=== PATIENT | male | born 1950 | race Caucasian/White ===

== ENCOUNTER 2019-02-14 00:58 | Emergency (ER) | payer MEDICARE, BC ==
--- NOTE | 2019-02-14 01:07 | EDM.PDOC ---
ED HPI GENERAL MEDICAL PROBLEM - General Chief Complaint: Cardiovascular Problem Stated Complaint: HIGH BP/PAIN IN HANDS Time Seen by Provider: 02/14/19 01:07 Source of Information: Reports: Patient History Limitations: Reports: No Limitations - History of Present Illness INITIAL COMMENTS - FREE TEXT/NARRATIVE: 9-year-old male presents the ED for evaluation of elevated blood pressure at home. He has no headache or vertigo symptoms. He feels numbness and tingling is worse in his hands in the distribution of the median nerve. By history has mild carpal tunnel syndrome but he states often gets worse for whatever reason when his blood pressure is elevated. Also reports some numbness and tingling in the dorsal aspect of his right foot and great toe. Some pain in his right upper back but it is mild. Eyes any chest pressure shortness of breath no nausea or vomiting. Is on 3 different blood pressure medications i.e. amlodipine 5 mg once daily. Metoprolol 50 mg twice a day. 2 weeks ago was also started on almost certain/hydrochlorothiazide 40/25 mg daily. Blood preasures checked at home were elevated before bed at 196/100. Dates it gradually seemed to go up every hour when he checked it and at 1:00 it was over 200 systolically and 106 diastolically. This made him come to the ED for fear of stroke. She'll blood pressure in the ED is 229/95. Second reading was improved at 205/113 however. Therefore for never reason he has a labile blood pressure and it's elevated tonight. Denies being under any extra stress at this time. Doesn't think his diet is changed and he watches his salt intake chronically. Patient states he did take an extra 5 mg dose of amlodipine about 11:30 last night but it didn't seem to improve his blood pressure. Onset: Gradual, Other (Patient has chronic hypertension for many years) Onset Date: 02/13/19 (Doppler pressure was noted to be elevated before going to bed last night.) Duration: Hour(s): Location: Reports: Other Quality: Reports: Other (Elevated blood pressure at home. Relatively asymptomatic. He has some median nerve symptoms bilaterally. Labs are worse tonight for whatever reason.) Severity: Moderate Improves with: Reports: None Worsens with: Reports: None Context: Reports: Other (Trying to get some sleep.). Denies: Activity, Exercise , Lifting, Sick Contact, Trauma Associated Symptoms: Reports: Malaise, Other (Reports numbness and tingling in his hands bilaterally in the distribution of the median nerve. Numbness in his right dorsal foot and some numbness tingling in his right upper mid back). Denies: Confusion, Chest Pain, Cough, cough w sputum, Diaphoresis, Fever/Chills , Headaches, Loss of Appetite, Nausea/Vomiting, Rash, Seizure, Shortness of Breath, Syncope Treatments ORDER PROCESSING SPECIALIST: Reports: Other (see below) (None.) - Related Data Allergies Allergy/AdvReac Type Severity Reaction Status Date / Time LILIYA Inhibitors Allergy Intermediate Cough Verified 02/14/19 01:13 morphine Allergy Pain Uncoded 02/14/19 01:13 Home Meds: Home Meds Aspirin [Halfprin] 81 mg PO DAILY 02/14/19 [History] Ferrous Sulfate [Iron] 325 mg PO BID 02/14/19 [History] Metoprolol Tartrate 50 mg PO BID 02/14/19 [History] Olmesartan/Hydrochlorothiazide [Olmesartan-Hctz 40-25 mg Tab] 1 tab PO DAILY [History] Pantoprazole Sodium [Protonix] 40 mg PO DAILY 02/14/19 [History] Potassium 99 mg PO DAILY 02/14/19 [History] Vit C/Ascorb Sod/Multivit-Min [Emergen-C 500 mg Chewable Tab] 500 mg PO DAILY [History] Vit D3/Folic Acid/B2/B6/B12 [Folgard Tablet] 2,000 units PO DAILY 02/14/19 [ History] amLODIPine [Norvasc] 5 mg PO DAILY 02/14/19 [History] amLODIPine [Norvasc] 10 mg PO DAILY #30 tablet 02/14/19 [Rx] Past Medical History HEENT History: Reports: Glaucoma (Right eye after retinal detachment. His and was restored surgically.), Retinal Detachment (Right eye) Cardiovascular History: Reports: Hypertension Gastrointestinal History: Reports: GERD (With reflux. Controlled with Prilosec daily) Musculoskeletal History: Reports: Osteoarthritis Neurological History: Reports: Other (See Below) (Carpal tunnel syndrome both hands.) Endocrine/Metabolic History: Reports: Other (See Below) (Chronic hypokalemia) Social & Family History - Living Situation & Occupation Living situation: Reports: Single Occupation: Employed (Self-employed) ED ROS GENERAL - Review of Systems Review Of Systems: See Below Constitutional: Reports: Fatigue. Denies: Fever, Chills, Decreased Appetite, Weight Loss HEENT: Reports: Glasses (Mostly for reading.), Other (Right eye remains chronically erythematous i.e. conjunctiva is injected likely is a side effect of medications for glaucoma) Respiratory: Reports: Shortness of Breath. Denies: Wheezing, Pleuritic Chest Pain (Occasionally on exertion), Cough, Sputum Cardiovascular: Reports: Blood Pressure Problem, Dyspnea on Exertion (Sometimes) . Denies: Chest Pain, Claudication, Edema, Lightheadedness, Orthopnea ( Chronically) Endocrine: Reports: Fatigue GI/Abdominal: Reports: No Symptoms : Reports: Frequency, Other (Nocturia usually 2) Musculoskeletal: Reports: Joint Pain (These hips and neck and back at times) Skin: Reports: No Symptoms Neurological: Reports: Other (Weekly has carpal tunnel syndrome bilaterally with peers seizes numbness and continuing in the distribution of the median nerve bilaterally) Psychiatric: Reports: No Symptoms Hematologic/Lymphatic: Reports: No Symptoms Immunologic: Reports: No Symptoms ED EXAM, GENERAL - Physical Exam Exam: See Below Exam Limited By: No Limitations General Appearance: Alert, WD/WN, No Apparent Distress Eye Exam: Right Eye: Conjunctival Injection (Moderate and this is chronic since surgical repair of retinal detachment and use of medication for glaucoma right eye), Bilateral Eye: PERRL Neck: Normal Inspection, Supple, Non-Tender, Full Range of Motion. No: Carotid Bruit, Lymphadenopathy (L), Lymphadenopathy (R) Respiratory/Chest: No Respiratory Distress, Lungs Clear, Normal Breath Sounds, Chest Non-Tender Cardiovascular: Normal Peripheral Pulses, Regular Rate, Rhythm, No Edema, No Gallop, No Murmur, No Rub Peripheral Pulses: 2+: Carotid (L), Carotid (R), Posterior Tibial (L), Posterior Tibial (R), Dorsalis Pedis (L), Dorsalis Pedis (R) GI/Abdominal: Normal Bowel Sounds, Soft, Non-Tender, No Organomegaly, No Mass, Pelvis Stable Back Exam: Normal Inspection, Full Range of Motion, Other (Mild tenderness over thoracic 7 rib head right upper back.). No: CVA Tenderness (L), CVA Tenderness (R) Extremities: Normal Inspection, Non-Tender, No Pedal Edema, Normal Capillary Refill, Other (Evidence of ulcers Norman changes in his knees and hips.) Neurological: Alert, Oriented, CN II-XII Intact, Normal Cognition, Other ( Positive Horacio's and Phalen's test on assessment of median nerves bilaterally comparable carpal tunnel syndrome) Skin Exam: Warm, Dry, Intact, Normal Color, No Rash EKG INTERPRETATION EKG Date: 02/14/19 Time: 13:02 Rhythm: NSR Rate (Beats/Min): 70 (Borderline first-degree AV block) Gwinner: LAD-Left Gwinner Deviation (Left axis deviation of -62 2. Left anterior fascicular block pattern) P-Wave: Enlarged (Left atrial hypertrophy pattern. P waves are inverted in leads V1 and V2.) QRS: Other (There is left ventricular hypertrophy pattern. There are near Q waves II, III, and F aVF suggestive of possible old inferior wall myocardial infarction.) ST-T: Other (Diffuse early repolarization pattern) QT: Prolonged (Minimally prolonged) EKG Interpretation Comments: Abnormal ECG Course - Vital Signs Last Recorded V/S: Last Vital Signs Temp 36.7 C 02/14/19 01:03 Pulse 73 02/14/19 01:03 Resp 23 H 02/14/19 01:03 BP 175/88 H 02/14/19 01:33 Pulse Ox 98 02/14/19 01:03 - Orders/Labs/Meds Orders: Active Orders 24 hr Category Date Time Status EKG Documentation Completion [RC] STAT Care 02/14/19 01:21 Active Peripheral IV Care [RC] . DIRECTED Care 02/14/19 01:22 Active Sodium Chloride 0.9% [Saline Flush] Med 02/14/19 01:21 Active 10 ml FLUSH ASDIRECTED PRN Peripheral IV Insertion Adult [OM.PC] Stat Oth 02/14/19 01:22 Ordered Medication Orders Sodium Chloride (Saline Flush) 10 ml FLUSH ASDIRECTED PRN PRN Reason: Keep Vein Open Last Admin: 02/14/19 01:35 Dose: 10 ml Labs: Laboratory Tests 02/14/19 02/14/19 02/14/19 Range/Units 01:30 01:30 01:30 WBC 8.63 (4.23-9.07) K/mm3 RBC 5.94 (4.63-6.08) M/mm3 Hgb 15.7 (13.7-17.5) gm/L Hct 45.1 (40.1-51.0) % MCV 75.9 L (79.0-92.2) fl MCH 26.4 (25.7-32.2) pg MCHC 34.8 (32.2-35.5) g/dl RDW Std Deviation 37.8 (35.1-43.9) fL Plt Count 184 (163-337) K/mm3 MPV 12.2 (9.4-12.3) fl Neutrophils % (Manual) 58 (40-60) % Band Neutrophils % 0 (0-10) % Lymphocytes % (Manual) 36 (20-40) % Atypical Lymphs % 0 % Monocytes % (Manual) 2 (2-10) % Eosinophils % (Manual) 3 (0.8-7.0) % Basophils % (Manual) 1 (0.2-1.2) Platelet Estimate Adequate Plt Morphology Comment Normal RBC Morph Comment Normal Sodium 140 (136-145) mEq/L Potassium 2.9 L (3.5-5.1) mEq/L Chloride 103 (98-107) mEq/L Carbon Dioxide 27 (21-32) mEq/L Anion Gap 12.9 (5-15) BUN 13 (7-18) mg/dL Creatinine 1.0 (0.7-1.3) mg/dL Est Cr Clr Drug Dosing 68.74 mL/min Estimated GFR (MDRD) > 60 (>60) mL/min BUN/Creatinine Ratio 13.0 L (14-18) Glucose 143 H (80-115) mg/dL Calcium 10.0 (8.5-10.1) mg/dL Magnesium 1.8 (1.8-2.4) mg/dl Total Bilirubin 0.4 (0.2-1.0) mg/dL AST 18 (15-37) U/L ALT 30 (16-63) U/L Alkaline Phosphatase 95 (46-116) U/L NT-Pro-B Natriuret Pep 192 H (0-125) pg/mL Total Protein 7.6 (6.4-8.2) g/dl Albumin 3.6 (3.4-5.0) g/dl Globulin 4.0 gm/dL Albumin/Globulin Ratio 0.9 L (1-2) Meds: Medications Generic Name Dose Route Start Last Admin Trade Name Damaris PRN Reason Stop Dose Admin Sodium Chloride 10 ml 02/14/19 01:21 02/14/19 01:35 Saline Flush FLUSH 10 ml ASDIRECTED PRN Administration Keep Vein Open Discontinued Medications Generic Name Dose Route Start Last Admin Trade Name Damaris PRN Reason Stop Dose Admin Hydralazine HCl 10 mg 02/14/19 01:22 02/14/19 01:31 Apresoline IVPUSH 02/14/19 01:23 10 mg ONETIME ONE Administration Prazosin HCl 1 mg 02/14/19 01:24 02/14/19 01:33 Minpress PO 02/14/19 01:25 1 mg ONETIME ONE Administration - Radiology Interpretation Free Text/Narrative:: Patient presents the ED with elevated blood pressure. As chronic hypertension and was started on losartan/hydrochlorothiazide 40/25 mg 2 weeks ago. He has reported allergy to liliya inhibitors. He is also on a potassium supplement. He presents with elevated blood pressure since before going to bed last night. He states he senses when his blood pressure is elevated and therefore takes his blood pressure. He states was around 195 systolic before going to bed last night. Usually when he checks it sets in the 1:30 to 140 systolic range and usually below 90 diastolically. Initial blood pressure here in the ED was 229/ 95 and the second recording was 205/113. It appears that he is mildly apprehensive in this regard. He has bilateral carpal tunnel syndrome clinically which he states he often appreciates his weight made worse when his blood pressure is elevated. Plan saline lock. He will receive hydralazine 10 mg IV and I will give him a dose of prazosin 1 mg orally. Routine labs to be obtained. ECG does not show anything acute. - Re-Assessments/Exams Free Text/Narrative Re-Assessment/Exam: 02/14/19 01:48 Blood pressure is currently 163/81 with a heart rate of 68. Patient comments that there is less numbness and tingling in his hands and feet already. 02/14/19 02:18 Labs are for the most part back. White count is 8.63. Differential pending. Hemoglobin is 15.7 with hematocrit of 45.1. MCV remains mildly low at 75.9. Patient has a history of iron deficiency. Sodium is 140 with potassium is low at 2.9. Chloride is 103 with a bicarbonate 27. Anion gap is 12.9. BUN is 13. Creatinine is 1.0. eGFR is greater than 60. Glucose is 143. Calcium is 10.0. Magnesium 1.8. Liver function is normal. BNP is minimally elevated at 192. Total protein is 7.6 with a albumin fraction of 3.6. Blood pressure is improved to 152/69. I will therefore allow the patient to go home. Plan will be to increase his potassium supplement to twice a day dosing. Also his Norvasc will be increased to a full 10 mg once daily. He is to follow-up with his personal care physician within the next 10 days for blood pressure reevaluation. He actually apparently has an appointment time sometime within the next 2 weeks. He sees [facility] in [place]. The plan will be to increase his amlodipine to a full 10 mg in the morning. This is a better chance of providing 24-hour control blood pressure. He will double his potassium tablets for now daily to bring his potassium up. If he remains hypokalemic in 2 weeks' time then the hydrochlorothiazide may have to be withdrawn from his treatment plan. If his blood pressure continues to elevate he will require another antihypertensive medication such as prazosin or cozaar. Departure - Departure Time of Disposition: 02:27 Disposition: Home, Self-Care 01 Condition: Fair Clinical Impression: Hypokalemia due to loss of potassium, Labile essential hypertension Prescriptions: amLODIPine [Norvasc] 10 mg PO DAILY #30 tablet Instructions: Hypokalemia, Managing Your Hypertension Referrals: PCP,Not In Area [Primary Care Provider] - Forms: ED Department Discharge Additional Instructions: Evaluation the emergency room this morning in regards to identified elevated blood pressure at home with continuing elevation of the top number particularly. Upon arrival in the ED blood pressure was found to be significantly elevated at 229/105 and then came down to 205/113. We call this labile hypertension which means her blood pressure goes up and down like rolling [place] for no apparent reason. Appreciated a worsening of carpal tunnel syndrome in both of your hands with increased numbness and tingling and similarly in your right foot. Blood pressure was treated with intravenous hydralazine 10 mg dose and oral prazosin 1 mg dose. Lab tests revealed that your potassium was on the low side at 2.9 and it should be 3.5-4. Kidney function is still excellent. At this time I would suggest increasing your Norvasc to a full 10 mg tablet in the morning instead of 5 mg or take 25 mg tablets since you have quite a few left. Prescription was written for the 10 mg dosage that you may feel when you run out of the 5 mg dosage. Just increasing her potassium supplement twice daily to review with her personal care physician in [place] in a couple of weeks time. Of course return to the emergency department if blood pressure remains out of control at any time - My Orders Last 24 Hours: My Active Orders 02/14/19 01:21 EKG Documentation Completion [RC] STAT Sodium Chloride 0.9% [Saline Flush] 10 ml FLUSH ASDIRECTED PRN 02/14/19 01:22 Peripheral IV Care [RC] . DIRECTED Peripheral IV Insertion Adult [OM.PC] Stat - Assessment/Plan Last 24 Hours: My Active Orders 02/14/19 01:21 EKG Documentation Completion [RC] STAT Sodium Chloride 0.9% [Saline Flush] 10 ml FLUSH ASDIRECTED PRN 02/14/19 01:22 Peripheral IV Care [RC] . DIRECTED Peripheral IV Insertion Adult [OM.PC] Stat
[2019-02-14] MEDS ORDERED: Sodium Chloride 0.9% 10 ML Syringe FLUSH PRN (01:21)
[2019-02-14] MEDS ORDERED: hydrALAZINE 20 MG/ML SDV IVPUSH ONE (01:22)
[2019-02-14] MEDS ORDERED: Prazosin 1 MG Cap PO ONE (01:24)
== END 2019-02-14 02:37 | disposition home or self-care (01) ==
LOC: JD.ED 00:58
DX: I10 Essential (primary) hypertension (principal); E87.6 Hypokalemia; K21.9 Gastro-esophageal reflux disease without esophagitis; M19.90 Unspecified osteoarthritis, unspecified site; Z79.82 Long term (current) use of aspirin; Z79.899 Other long term (current) drug therapy
CPT/HCPCS: 36415; 80053; 83735; 83880; 85007; 85027; 93005; 96374; 99283; A9270; J0360; 93010; 99285

== ENCOUNTER 2021-01-12 16:27 | Emergency (ER) | payer MEDICARE, BC ==
[2021-01-12] MEDS ORDERED: Ondansetron 4 MG/2 ML SDV IVPUSH ONE (17:06)
[2021-01-12] MEDS ORDERED: Sodium Chloride 0.9% 10 ML Syringe FLUSH PRN (17:07)
[2021-01-12] MEDS ORDERED: Sodium Chloride 0.9% 1,000 ML IV SCH (17:15)
--- NOTE | 2021-01-12 17:15 | EDM.PDOC ---
ED HPI GENERAL MEDICAL PROBLEM - General Chief Complaint: Abdominal Pain Stated Complaint: LT SIDE ABD PAIN Time Seen by Provider: 01/12/21 16:45 Source of Information: Reports: Patient, RN Notes Reviewed History Limitations: Reports: No Limitations - History of Present Illness INITIAL COMMENTS - FREE TEXT/NARRATIVE: Patient is a 70-year-old male who presents to the ED for his left side abdomen pain. Patient notes that this started at around 8 AM this morning, when he rolled over in the bed, he felt a sharp sensation in his left lower quadrant, and this has been constant since then. He has a history of diverticulitis and has had multiple major surgeries done, has had a colostomy placed, taken down, notes that he has lots of adhesions in his abdomen. He felt maybe slightly nauseated but has not had any vomiting or diarrhea, his last bowel movement was this morning, this was normal for him. He did not note any blood within the stool. He is not had any fevers or chills, cough or shortness of breath. His primary care provider is in [place]. Patient did not take any sort of medications for the pain, he further denies any urinary issues like frequency/urgency or dysuria. Other Treatments SAFETY COMPANION: none Left Abdomen Pain Score (Numeric/FACES): 1 - Related Data Allergies Allergy/AdvReac Type Severity Reaction Status Date / Time LILIYA Inhibitors Allergy Severe Cough Verified 01/12/21 16:41 morphine Allergy Severe Pain Uncoded 01/12/21 16:41 Home Meds: Home Meds Aspirin [Halfprin] 81 mg PO DAILY 02/14/19 [History] Ferrous Sulfate [Iron] 325 mg PO BID 02/14/19 [History] Metoprolol Tartrate 50 mg PO BID 02/14/19 [History] Olmesartan/Hydrochlorothiazide [Olmesartan-Hctz 40-25 mg Tab] 1 tab PO DAILY 02/14/19 [History] Pantoprazole Sodium [Protonix] 40 mg PO DAILY 02/14/19 [History] Potassium 99 mg PO DAILY 02/14/19 [History] Vit C/Ascorb Sod/Multivit-Min [Emergen-C 500 mg Chewable Tab] 500 mg PO DAILY 02/14/19 [History] Vit D3/Folic Acid/B2/B6/B12 [Folgard Tablet] 2,000 units PO DAILY 02/14/19 [History] amLODIPine [Norvasc] 5 mg PO DAILY 02/14/19 [History] amLODIPine [Norvasc] 10 mg PO DAILY #30 tablet 02/14/19 [Rx] Past Medical History HEENT History: Reports: Glaucoma, Retinal Detachment Cardiovascular History: Reports: Hypertension Gastrointestinal History: Reports: GERD Musculoskeletal History: Reports: Osteoarthritis Other Musculoskeletal History: fx ankle Neurological History: Reports: Other (See Below) Endocrine/Metabolic History: Reports: Other (See Below) - Infectious Disease History Infectious Disease History: Reports: Chicken Pox, Measles, Mumps, Shingles - Past Surgical History HEENT Surgical History: Reports: Detached Retina GI Surgical History: Reports: Appendectomy, Cholecystectomy Social & Family History - Tobacco Use Tobacco Use Status *Q: Never Tobacco User - Caffeine Use Caffeine Use: Reports: Coffee, Soda - Recreational Drug Use Recreational Drug Use: No - Living Situation & Occupation Living situation: Reports: Single Occupation: Employed (Self-employed) ED ROS GENERAL - Review of Systems Review Of Systems: Comprehensive ROS is negative, except as noted in HPI. ED EXAM, GI/ABD - Physical Exam Exam: See Below Exam Limited By: No Limitations General Appearance: Alert, WD/WN, No Apparent Distress Respiratory/Chest: No Respiratory Distress, Lungs Clear, Normal Breath Sounds, No Accessory Muscle Use, Chest Non-Tender Cardiovascular: Normal Peripheral Pulses, Regular Rate, Rhythm, No Edema GI/Abdominal Exam: Normal Bowel Sounds, Soft, No Distention, No Mass, Tender (LLQ mainly and over the site of colostomy). No: Hernia (that was palpable) Extremities: Normal Inspection, Normal Capillary Refill Neurological: Alert, Oriented, Normal Cognition, No Motor/Sensory Deficits Psychiatric: Normal Affect, Normal Mood Skin Exam: Warm, Dry, Intact, Normal Color, No Rash Course - Vital Signs Last Recorded V/S: Last Vital Signs Temp 97.9 F 01/12/21 16:51 Pulse 75 01/12/21 16:51 Resp 20 01/12/21 16:51 BP 197/96 H 01/12/21 16:51 Pulse Ox 99 01/12/21 16:51 - Orders/Labs/Meds Orders: Active Orders 24 hr Category Date Time Status Peripheral IV Care [RC] . DIRECTED Care 01/12/21 17:07 Ordered Abdomen Pelvis w Cont [CT] Stat Exams 01/12/21 17:06 Ordered Sodium Chloride 0.9% [Normal Saline] 1,000 ml Med 01/12/21 17:15 Ordered IV ASDIRECTED Sodium Chloride 0.9% [Normal Saline] 100 ml Med 01/12/21 19:15 Active IV ASDIRECTED Sodium Chloride 0.9% [Saline Flush] Med 01/12/21 17:07 Ordered 10 ml FLUSH ASDIRECTED PRN Peripheral IV Insertion Adult [OM.PC] Routine Oth 01/12/21 17:07 Ordered Medication Orders Sodium Chloride (Normal Saline) 1,000 mls @ 999 mls/hr IV ASDIRECTED ZAK Last Admin: 01/12/21 17:15 Dose: 999 mls/hr Documented by: FRANK Sodium Chloride (Normal Saline) 100 mls @ 60 drops/min IV ASDIRECTED ZAK Last Admin: 01/12/21 19:43 Dose: 60 drops/min Documented by: [email or web address] Sodium Chloride (Saline Flush) 10 ml FLUSH ASDIRECTED PRN PRN Reason: Keep Vein Open Last Admin: 01/12/21 16:50 Dose: 10 ml Documented by: FRANK Labs: Laboratory Tests 01/12/21 01/12/21 01/12/21 Range/Units 16:50 16:50 17:10 WBC 7.70 (4.23-9.07) K/mm3 RBC 6.19 H (4.63-6.08) M/mm3 Hgb 16.0 (13.7-17.5) gm/dl Hct 47.5 (40.1-51.0) % MCV 76.7 L (79.0-92.2) fl MCH 25.8 (25.7-32.2) pg MCHC 33.7 (32.2-35.5) g/dl RDW Std Deviation 39.8 (35.1-43.9) fL Plt Count 194 (163-337) K/mm3 MPV 12.7 H (9.4-12.3) fl Neutrophils % (Manual) 64 H (40-60) % Band Neutrophils % 0 (0-10) % Lymphocytes % (Manual) 33 (20-40) % Atypical Lymphs % 0 % Monocytes % (Manual) 2 (2-10) % Eosinophils % (Manual) 1 (0.8-7.0) % Basophils % (Manual) 0 L (0.2-1.2) Platelet Estimate Adequate Plt Morphology Comment See note Microcytosis 1+ slight RBC Morph Comment Not Reportable Sodium 144 (136-145) mEq/L Potassium 3.5 (3.5-5.1) mEq/L Chloride 105 (98-107) mEq/L Carbon Dioxide 28 (21-32) mEq/L Anion Gap 14.5 (5-15) BUN 12 (7-18) mg/dL Creatinine 1.0 (0.7-1.3) mg/dL Est Cr Clr Drug Dosing 67.75 mL/min Estimated GFR (MDRD) > 60 (>60) mL/min BUN/Creatinine Ratio 12.0 L (14-18) Glucose 107 (83-115) mg/dL Calcium 9.9 (8.5-10.1) mg/dL Total Bilirubin 0.5 (0.2-1.0) mg/dL AST 22 (15-37) U/L ALT 30 (16-63) U/L Alkaline Phosphatase 106 (46-116) U/L C-Reactive Protein 1.0 (<1.0) mg/dL Total Protein 8.2 (6.4-8.2) g/dl Albumin 3.8 (3.4-5.0) g/dl Globulin 4.4 gm/dL Albumin/Globulin Ratio 0.9 L (1-2) Urine Color Yellow (Yellow) Urine Appearance Clear (Clear) Urine pH 7.5 (5.0-8.0) Ur Specific [place] 1.020 (1.005-1.030) Urine Protein Negative (Negative) Urine Glucose (UA) Negative (Negative) Urine Ketones Negative (Negative) Urine Occult Blood Negative (Negative) Urine Nitrite Negative (Negative) Urine Bilirubin Negative (Negative) Urine Urobilinogen 0.2 (0.2-1.0) Ur Leukocyte Esterase Negative (Negative) Urine RBC 0-5 (0-5) /hpf Urine WBC 0-5 (0-5) /hpf Ur Squamous Epith Cells Not seen (0-5) /hpf Urine Bacteria Occasional (FEW) /hpf Urine Mucus Not seen (FEW) /hpf Meds: Medications Generic Name Dose Route Start Last Admin Trade Name Freq PRN Reason Stop Dose Admin Sodium Chloride 1,000 mls @ 999 mls/hr 01/12/21 17:15 01/12/21 17:15 Normal Saline IV 999 mls/hr ASDIRECTED ZAK Administration Sodium Chloride 100 mls @ 60 drops/min 01/12/21 19:15 01/12/21 19:43 Normal Saline IV 60 drops/min ASDIRECTED ZAK Administration Sodium Chloride 10 ml 01/12/21 17:07 01/12/21 16:50 Saline Flush FLUSH 10 ml ASDIRECTED PRN Administration Keep Vein Open Discontinued Medications Generic Name Dose Route Start Last Admin Trade Name Damaris PRN Reason Stop Dose Admin Iopamidol 100 ml 01/12/21 19:14 01/12/21 19:43 Isovue-300 (61%) IVPUSH 01/12/21 19:15 100 ml ONETIME ONE Administration Ondansetron HCl 4 mg 01/12/21 17:06 01/12/21 17:14 Zofran IVPUSH 01/12/21 17:07 4 mg ONETIME ONE Administration - Re-Assessments/Exams Free Text/Narrative Re-Assessment/Exam: 01/12/21 17:13 Patient presents to the ED for evaluation of his left lower quadrant abdominal pain, IV was placed at time of triage required to do labs, urinalysis and abdom en pelvis CT with IV and oral contrast for further investigation. Patient does have history of diverticulitis, along with multiple abdomen surgeries. 01/12/21 20:21 The patient's labs did result, CBC, metabolic panel, CRP are all unremarkable, urinalysis also without infection. The CT did demonstrate a cyst on the left lower kidney, but no other acute findings. There was quite a bit of stool t hroughout his colon, with a large stool burden within the left colon, just about where he was pointing on his abdomen where it hurt. There is no free fluid, inflammatory change, or any other signs of possible diverticulitis at this time. I did go over the results with the patient, and he verbalized understanding. He should follow-up with his primary care provider, for a dedicated renal study due to the cyst. Patient did get oral contrast at this ER visit, which should provide somewhat of a laxative effect, will go ahead and give him some mag citrate as well for a full bowel cleanse. Departure - Departure Time of Disposition: 20:23 Disposition: Home, Self-Care 01 Condition: Good Clinical Impression: LLQ abdominal pain, Renal cyst Constipation Qualifiers: Constipation type: other constipation type Qualified Code(s): K59.09 - Other constipation - Discharge Information *PRESCRIPTION DRUG MONITORING PROGRAM REVIEWED*: No *COPY OF PRESCRIPTION DRUG MONITORING REPORT IN PATIENT OSMAN: No Instructions: Constipation, Adult, [id number] Referrals: PCP,Not In Area [Primary Care Provider] - Forms: ED Department Discharge Additional Instructions: You were evaluated in the ER today for your left lower quadrant abdomen pain. Labs and a CT were done at today's visit, and demonstrate no remarkable acute findings. You did have a cyst on your left kidney, that you were not aware of prior to this visit, recommend you follow-up with your primary care physician, for dedicated renal studies like ultrasound. You were given a copy of the CT report for your primary care provider's review. Your CT also demonstrated quite a bit of stool burden throughout your colon, which is consistent with slight constipation. The oral contrast received at today's visit, should provide a laxative effect however you were also given a bottle of magnesium citrate, please use this tomorrow morning, drink one half bottle if you do not have a rather large bowel movement within a few hours, repeat with the other half bottle. Please note you might have some abdomen cramping while using this medication, and you may end up with some looser stools towards the end of this medication. Please return to the ER at any time if symptoms change or worsen. Sepsis Event Note (ED) - Evaluation Sepsis Screening Result: No Definite Risk - Focused Exam Vital Signs: Vital Signs Temp Pulse Resp BP Pulse Ox 01/12/21 16:51 97.9 F 75 20 197/96 H 99 - My Orders Last 24 Hours: My Active Orders 01/12/21 17:06 Abdomen Pelvis w Cont [CT] Stat 01/12/21 17:07 Peripheral IV Care [RC] . DIRECTED Sodium Chloride 0.9% [Saline Flush] 10 ml FLUSH ASDIRECTED PRN Peripheral IV Insertion Adult [OM.PC] Routine 01/12/21 17:15 Sodium Chloride 0.9% [Normal Saline] 1,000 ml IV ASDIRECTED 01/12/21 19:15 Sodium Chloride 0.9% [Normal Saline] 100 ml IV ASDIRECTED - Assessment/Plan Last 24 Hours: My Active Orders 01/12/21 17:06 Abdomen Pelvis w Cont [CT] Stat 01/12/21 17:07 Peripheral IV Care [RC] . DIRECTED Sodium Chloride 0.9% [Saline Flush] 10 ml FLUSH ASDIRECTED PRN Peripheral IV Insertion Adult [OM.PC] Routine 01/12/21 17:15 Sodium Chloride 0.9% [Normal Saline] 1,000 ml IV ASDIRECTED 01/12/21 19:15 Sodium Chloride 0.9% [Normal Saline] 100 ml IV ASDIRECTED
[2021-01-12] MEDS ORDERED: Iopamidol 612 MG/ML 100 ML Bottle IVPUSH ONE (19:14)
[2021-01-12] MEDS ORDERED: Sodium Chloride 0.9% 100 ML IV SCH (19:15)
[2021-01-12] MEDS ORDERED: Magnesium Citrate Solution 296 ML Bottle PO ONE (20:24)
--- NOTE | 2021-01-13 08:04 | CT ---
CT abdomen and pelvis Technique: Multiple axial sections were obtained from above the dome of the diaphragm inferiorly through the pubic symphysis. Intravenous and oral contrast was utilized. Delayed images were also obtained through the abdomen and pelvis. Comparison: Previous CT abdomen and pelvis study of 04/29/11. Findings: Visualized lung bases show nothing acute. Liver shows no focal parenchymal abnormality. Spleen appears normal. Adrenal glands show no nodule. Pancreas is within normal limits. Surgical clips are noted from prior cholecystectomy. Right kidney appears within normal limits. Left kidney shows a multi-locular cystic area within the lower pole showing some wall calcifications. This finding measures approximately 5.0 cm in greatest dimension. Spleen size is normal. Several small accessory splenic tissues are seen off the inferior spleen. Abdominal aorta shows atherosclerotic calcification without aneurysm. No pelvic mass or adenopathy is appreciated. Delayed images show contrast within the distal ureters and within the bladder. Increased stool is noted throughout the colon. 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 There is also severe degenerative change within the L5-S1 apophyseal joints. Impression: 1. Multiloculated cystic area within the lower left kidney showing wall calcifications. This measures up to 5.0 cm. This finding is believed to be fairly stable from prior exam and therefore is benign. 2. Mild increased stool throughout the colon. 3. Other findings as noted above. Nothing acute is seen. Diagnostic code #2 I agree with preliminary report from [facility], finalized on 01/12/21, 9:01 PM [employer]
== END 2021-01-12 20:57 | disposition home or self-care (01) ==
LOC: JD.ED 16:27
DX: K59.09 Other constipation (principal); N28.1 Cyst of kidney, acquired; I10 Essential (primary) hypertension; K21.9 Gastro-esophageal reflux disease without esophagitis; M19.90 Unspecified osteoarthritis, unspecified site; Z79.899 Other long term (current) drug therapy; Z88.5 Allergy status to narcotic agent; Z88.8 Allergy status to other drugs, medicaments and biological substances; Z79.82 Long term (current) use of aspirin
CPT/HCPCS: 36415; 74177; 80053; 81001; 85007; 85027; 86140; 96374; 99284; A9270; J2405; J7030; Q9967